=== PATIENT | male | born 1960 | race Caucasian/White ===

== ENCOUNTER 2016-10-24 10:12 | Emergency (ER) | payer OTHER ==
[~2016-10-24] VITALS: Ht 167.6 cm; Wt 102.7 kg
[2016-10-24] MEDS ORDERED: ETODOLAC300 MG PO (10:26)
[2016-10-24] MEDS ORDERED: GLIMEPIRIDE2 M1 PO (10:26)
[2016-10-24] MEDS ORDERED: PROAIR HFA0.09 MG/AC IH (10:27)
[2016-10-24] MEDS ORDERED: ASPIRIN E.C. 8181 MG PO (10:27)
[2016-10-24 11:17] VITALS: BP 138/82
== END 2016-10-24 11:25 | disposition home or self-care (01) ==
LOC: ED 10:12
DX: S01.01XA Laceration without foreign body of scalp, initial encounter (principal); W22.8XXA Striking against or struck by other objects, initial encounter; E11.9 Type 2 diabetes mellitus without complications; Z79.84 Long term (current) use of oral hypoglycemic drugs; J45.909 Unspecified asthma, uncomplicated

== ENCOUNTER → 2021-04-08 | Outpatient (CLI) | payer OTHER ==
[~2021-04-08] MED LIST: ASPIRIN E.C. 8181 MG PO; ETODOLAC300 MG PO; GLIMEPIRIDE2 M1 PO; PROAIR HFA0.09 MG/AC IH
== END ==
LOC: RAD 07:01
DX: M17.11 Unilateral primary osteoarthritis, right knee (principal); Z96.652 Presence of left artificial knee joint

== ENCOUNTER 2023-01-20 09:59 | Outpatient (RCR) | payer MEDICARE | END 2023-02-17 | disposition home or self-care (01) | LOC: PT | DX: M17.11 Unilateral primary osteoarthritis, right knee (principal); Z96.651 Presence of right artificial knee joint ==

== ENCOUNTER 2023-02-18 08:00 | Outpatient (RCR) | payer MEDICARE | END 2023-03-18 14:45 | disposition home or self-care (01) | LOC: PT 08:00 | DX: M17.11 Unilateral primary osteoarthritis, right knee (principal); Z96.651 Presence of right artificial knee joint ==